=== PATIENT | female | born 1935 | race Caucasian/White ===

== ENCOUNTER 2023-06-09 18:54 | Outpatient (CLI) | payer MEDICARE, BC | END 2023-06-09 18:55 | disposition critical access hospital (66) | LOC: EMS 18:54 | DX: S01.01XA Laceration without foreign body of scalp, initial encounter (principal); W18.30XA Fall on same level, unspecified, initial encounter; Y92.099 Unspecified place in other non-institutional residence as the place of occurrence of the external cause | CPT/HCPCS: A0425; A0429 ==

== ENCOUNTER 2023-06-09 19:10 | Emergency (ER) | payer MEDICARE, BC ==
[2023-06-09] MEDS ORDERED: ceFAZolin 1 GM VIAL IM STA (21:10)
[2023-06-09] MEDS ORDERED: TETANUS/DIPHTHERIA/PERTUSSIS 0.5 ML SYRINGE IM ONE (21:33)
--- NOTE | 2023-06-09 21:35 | ED Physician Documentation ---
History of Present Illness - Stated complaint Stated Complaint: FALL - Chief complaint Chief Complaint: Trauma Hd/Nk - History obtained from History obtained from: EMS - Additonal information Additional information: 88yF [facility], DNR/DNI comfort measures only with severe dementia, s/p fall with lac to R occiput. history limited by patient dementia. Review of Systems Unable to obtain: Dementia, Other (unable to otabin) PD PAST MEDICAL HISTORY - Past Medical History Past Medical History: Yes Cardiovascular: Hypertension Neuro: Dementia, TIA GI: GERD Psych: Anxiety Musculoskeletal: Osteoarthritis, Osteoporosis - Allergies Allergies/Adverse Reactions: Allergies Allergy/AdvReac Type Severity Reaction Status Date / Time Iodinated Contrast Media Allergy Unknown Verified 06/09/23 19:24 meperidine Allergy Unknown Verified 06/09/23 19:24 PPI Allergy Unknown Uncoded 06/09/23 19:24 Sulfites Allergy Unknown Uncoded 06/09/23 19:24 - Social History Does the pt smoke?: No Smoking Status: Never smoker Does the pt drink ETOH?: No Does the pt have substance abuse?: No - Immunizations Immunizations are current?: Yes - POLST Patient has POLST: Yes PD ED PE NORMAL - Vitals Vital signs reviewed: Yes - General General: Alert and oriented X 3, No acute distress, Well developed/nourished - HEENT HEENT: PERRL, EOMI, Moist mucous membranes, Pharynx benign, Other (occipital scalp with large 10cm vertical laceration down to the calvarium, hemostatic) - Neck Neck: Supple, no meningeal sign - Cardiac Cardiac: RRR - Respiratory Respiratory: No respiratory distress, Clear bilaterally - Derm Derm: Normal color, Warm and dry Results - Vitals Vitals: Vital Signs - 24 hr 06/09/23 06/09/23 19:10 20:28 Temperature 36.5 C Heart Rate 73 80 Respiratory 16 18 Rate Blood Pressure 154/71 H 134/85 H O2 Saturation 100 98 Oxygen O2 Source Room air Procedures - Laceration (location) Scalp Length in cm: 10 Wound type: Linear, Exposure of bone Neurovascular status: Sensory intact, Motor intact, Vascular intact Tendon involvement: Tendon intact Anesthesia: Lidocaine 1% Wound preparation: Irrigated copiously NS Skin layer closure: Parnell (16 andrea placed) Other: Patient tolerated well, No complications, Tetanus booster given PD Medical Decision Making - ED course ED course: 88yF DNR/DNI comfort measures only p/w laceration of scalp s/p GLF. it was repaired with lidocaine/andrea without issues. no futher workup given comfort measures only. Tetanus and one time dose ancef provided. plan for staple removal in 10 days. Departure - Departure Disposition: 01 Home, Self Care Clinical Impression: Laceration of scalp Condition: Stable Instructions: ED Laceration Scalp Stitch Or Stap Comments: You were seen in the emergency department for Cut to the scalp. A one time dose of antibiotics was given as well as a tetanus shot. 16 andrea were placed that should be removed in 10 days. You can go to walk in clinic or ask your primary care provider if they can do it. The ER is also available for staple removal as a last option. Please follow-up with your primary care provider and return to the emergency department if you have any new or worsening symptoms or other concerns.
[2023-06-09 22:19] VITALS: BP 163/92; O2SAT 92
== END 2023-06-09 22:31 | disposition home or self-care (01) ==
LOC: EDBD → EDUNIT# → ED 19:10
DX: S01.01XA Laceration without foreign body of scalp, initial encounter (principal); W19.XXXA Unspecified fall, initial encounter; I10 Essential (primary) hypertension; F03.90 Unspecified dementia, unspecified severity, without behavioral disturbance, psychotic disturbance, mood disturbance, and anxiety; Z66 Do not resuscitate; Z23 Encounter for immunization
CPT/HCPCS: 13121; 13122; 80053; 82803; 83690; 85025; 90471

== ENCOUNTER 2023-06-09 22:23 | Outpatient (CLI) | payer MEDICARE, BC | END 2023-06-09 23:59 | disposition home or self-care (01) | LOC: EMS 22:23 | PROVIDERS: ATTEND Emergency Medicine | DX: S01.01XA Laceration without foreign body of scalp, initial encounter (principal); W18.30XA Fall on same level, unspecified, initial encounter; F03.90 Unspecified dementia, unspecified severity, without behavioral disturbance, psychotic disturbance, mood disturbance, and anxiety; R41.0 Disorientation, unspecified | CPT/HCPCS: A0425; A0428 ==

== ENCOUNTER 2023-07-25 10:31 | Outpatient (CLI) | payer MEDICARE, BC | END 2023-07-25 23:59 | disposition critical access hospital (66) | LOC: EMS 10:31 | DX: M25.551 Pain in right hip (principal); W18.30XA Fall on same level, unspecified, initial encounter; Y92.098 Other place in other non-institutional residence as the place of occurrence of the external cause; F03.90 Unspecified dementia, unspecified severity, without behavioral disturbance, psychotic disturbance, mood disturbance, and anxiety | CPT/HCPCS: A0425; A0429 ==

== ENCOUNTER 2023-07-25 16:02 | Outpatient (CLI) | payer MEDICARE, BC | END 2023-07-25 16:03 | disposition home or self-care (01) | LOC: EMS 16:02 | PROVIDERS: ATTEND Emergency Medicine | DX: R41.0 Disorientation, unspecified (principal) | CPT/HCPCS: A0425; A0428 ==